=== PATIENT | male | born 1990 | race Caucasian/White ===

== ENCOUNTER 2017-09-11 13:48 | Emergency (ER) | payer OTHER ==
[2017-09-11] MEDS ORDERED: AZITHROMYCIN 250 MG TABLET PO STA (15:40)
--- NOTE | 2017-09-11 15:48 | ED Physician Documentation ---
History of Present Illness - Stated complaint Stated Complaint: MALE - Chief complaint Chief Complaint: General - Additonal information Additional information: hx from pt 26 y/o male AD [place] to ED with discharge no fever no abd pain does not think he was exposed to hepatitis HIV etc Review of Systems Constitutional: denies: Fever Respiratory: denies: Cough : reports: Discharge PD PAST MEDICAL HISTORY - Past Medical History Past Medical History: No - Past Surgical History Past Surgical History: No - Present Medications Home Medications: Ambulatory Orders Medication Instructions Recorded Confirmed No Known Home Medications [No 09/11/17 09/11/17 Known Home Medications] - Allergies Allergies/Adverse Reactions: Allergies Allergy/AdvReac Type Severity Reaction Status Date / Time Penicillins Allergy Anaphylaxis Verified 09/11/17 13:55 - Social History Does the pt smoke?: No Smoking Status: Never smoker Does the pt drink ETOH?: Yes Does the pt have substance abuse?: No - Immunizations Immunizations are current?: Yes PD ED PE NORMAL - Vitals Vital signs reviewed: Yes - Neck Neck: Supple, no meningeal sign - Cardiac Cardiac: RRR - Respiratory Respiratory: No respiratory distress, Clear bilaterally - Abdomen Abdomen: Non tender - Male Male : Other (circ, testes desc nt no masses, no lesions, smal clear dc, cx taken) Results - Vitals Vitals: Vital Signs - 24 hr 09/11/17 13:52 Temperature 36.3 C L Heart Rate 72 Respiratory 16 Rate Blood Pressure 133/76 H O2 Saturation 99 Oxygen O2 Source Room air Departure - Departure Disposition: 01 Home, Self Care Clinical Impression: Screen for STD (sexually transmitted disease) Condition: Good Instructions: ED STD Male Treated Comments: Your exam does not suggest herpes We sent tests for gonorrhea and chlamydia Because you have symptoms, we have already treated you with antibiotics. If the test comes back positive for gonorrhea and your symptoms do not improve with the antibiotic given in the ED you might need to take a class of medications called fluoroquinolones but they have some serious side effects are are best avoided if possible Recommend no intercourse until the results are back and you are not having symptoms. The tests will be resulted in 3 days - you can call the ER for your results or have your PMD at [facility] call us for the results [phone]
[2017-09-11 15:55] VITALS: BP 125/73
== END 2017-09-11 15:59 | disposition home or self-care (01) ==
LOC: ED 13:48
DX: Z20.2 Contact with and (suspected) exposure to infections with a predominantly sexual mode of transmission (principal)
CPT/HCPCS: 87491; 87591; 99283; A9270